=== PATIENT | female | born 1975 | race Caucasian/White ===

== ENCOUNTER 2018-01-10 12:56 | Inpatient (IN) ==
[2018-01-10] MEDS ORDERED: Tdap (Boostrix) Vaccine 0.5 ML SYRINGE IM ONE (13:37)
--- NOTE | 2018-01-10 13:52 | Emergency Department Note ---
Disposition Clinical Impression: Cellulitis, Cellulitis of arm, right, Substance abuse Disposition: Admitted As Inpatient Condition: Fair Referrals: Sammy Herring MD [Primary Care Provider] - Forms: ED Satisfaction Letter Time of Disposition: 17:15 Skin/Abscess/FB HPI Chief complaint: ED Skin/Abscess/Foreign Body Stated complaint: left and R arm cellulitis Time Seen by Provider: 01/10/18 13:15 Source: patient Nursing Notes Reviewed: Yes Vital Signs Reviewed: Yes HPI Narrative: 42-year-old female with a bipolar disorder and schizophrenia presenting for left and right arm mass, she "shot up my arms with meth "3 weeks ago. Pain has been gradually, but steadily worsening. Pt states she is not a meth user and did this because it "was a bad day, was a bad day, was a bad day," and "out of curiosity". Consistency: Constant. Pain scale: severe. Exacerbating factors: movement, flexing biceps, and palpation. Relieving factors: "passing out". Associated symptoms: erythema. Chills. Denies fever, rash. No chest pain. Denies abdominal pain. Endorses shortness of breath "kind of" . Able to walk long distances without difficulty. Tetanus status: unsure. Pt is R-handed. Home Medications Medication Instructions Recorded Confirmed Dextroamphetamine/Amphetamine 10 mg PO QID 05/15/16 11/08/17 [Adderall 10 mg Tablet] Gabapentin [Neurontin] 800 mg PO TID 01/10/18 01/10/18 SUMAtriptan Succinate [Sumavel 4 mg SQ DAILY PRN 01/10/18 01/10/18 Dosepro] Previous Rx's Medication Instructions Recorded cephALEXin [Keflex] 500 mg PO BID #14 capsule 01/08/18 Allergies Allergy/AdvReac Type Severity Reaction Status Date / Time Opioids-Meperidine and AdvReac Itching Verified 11/08/17 03:15 Related Review of Systems: As Per HPI Constitutional: Reports: chills. Denies: fever Cardiovascular: Reports: as per HPI Respiratory: Reports: as per HPI Gastrointestinal: Reports: as per HPI Genitourinary: Reports: as per HPI. Denies: dysuria Integumentary: Reports: as per HPI. Denies: rash Psychiatric: Reports: as per HPI Endocrine: Reports: other (maintains appetite: Last meal today: croissant at 7 AM, tea at 9 AM. ) Past Medical History - Past Medical History Source: patient, old records reviewed Medical history: Reports: migraine, other Surgical history: Reports: , orthopedic, other (Left index finger), other (Hemorrhoidectomy, epidural injections) Psychiatric history: Reports: anxiety, ADHD, bipolar, depression, panic disorder , schizophrenia, other PLUG WIRER history: Reports: bilateral tubal ligation - Social History Smoking Status: Current every day smoker Smokeless Tobacco Status: No Alcohol use: Reports: occasionally Drug use: Reports: marijuana, IV Drug Use Physical Exam - General Limitations: other (short answers, due to pain. Restless.) General appearance: alert, in distress - Head Head exam: other (tatoos in superior borders of eyebrows b/l) - Eye Eye exam: Present: PERRL, EOMI - Respiratory Respiratory exam: Present: normal lung sounds bilaterally. Absent: accessory muscle use - Cardiovascular Cardiovascular exam: Present: other (diminished heart sounds ) - Abdominal Exam Abdominal exam: Present: soft, Non-Tender. Absent: distention, guarding, rebound - Extremities Exam Extremities exam: Present: other (L UE: Erythematous, hard swollen mass pocket in L deltoid. Non-purulent. No crepitation noted. No active bleeding. R UE: Erythematous, hard swollen mass pocket. Non-purulent. Radial pulse intact b/l. Adequate architect in training strength b/l.) - Psychiatric Psychiatric exam: Present: anxious Course - Reevaluation(s) Reevaluation #1: 14:30 --At radiology. Reevaluation #2: 14:50. No progressive erythema on b/l arms. Patient resting still, however states she is in pain. CBC, BMP labs reviewed. BMP returned with normal Cr function - will give 15 mg Toradol IVP x1. No change in mentation. Reevaluation #3: 15:35 CT R and L UE results returned, reviewed with attending. CT demonstrating gas in R arm . Small foci of gas within the anterior deltoid muscle at the level the humeral neck. concerning for necrotizing fascitis. Surgical consult placed. Pt states pain remains at deltoid b/l, reduced from a 11 to 10/10. Did appear to be sleeping comfortably before re-assessment. Additional Reevaluation(s): 17:17 Patient sleeping comfortably. Amenable to admission. No further questions. - Consultations Consultation #1: 15:45 - 15:50 - Consultation with Dr. Montana. Reviewed clinical presentation, exam and CT findings. Dr. Montana is presently in surgery, spoke to the scrub RN and Dr. Montana, he will evaluate patient when he is finished. Discussed with patient, we are awaiting recommendations from surgery. Pt amenable to plan. Consultation #2: 16:15 - Dr Montana at bedside, evaluated pt and personally reviewed CT. Deems patient clinical presentation would benefit from orthopedic consultation. Consultation #3: 16:30 - Consultation with orthopedic surgeon Dr. Ang over the phone. Reviewed presentation, exam findings, CT findings. He recommends admission to medicine, with a consultation to orthopedics. Requests ESR and CRP. Consultation to medicine made. Additional Consultation(s): 17:15 Discussed clinical presentation, exam, imaging, and labs with patient for cellulitis. Accepted by Hospitalist Candy. Vital Signs Temperature 97.3 F L 01/10/18 13:00 Pulse Rate 78 01/10/18 13:00 Respiratory Rate 18 01/10/18 13:00 Blood Pressure 145/88 01/10/18 13:00 O2 Sat by Pulse Oximetry 100 01/10/18 13:00 Temperature 97.3 F L 01/10/18 13:00 Pulse Rate 79 01/10/18 16:15 Respiratory Rate 18 01/10/18 16:15 Blood Pressure 132/97 01/10/18 16:15 O2 Sat by Pulse Oximetry 100 01/10/18 16:15 Oxygen Delivery Oxygen Delivery Room Air Skin/Abscess/Foreign Body - [facility] Narrative Medical decision making narrative: 42 y F with bipolar disorder and schizophrenia presenting with non-purulent skin tissue swelling, onset 3 weeks ago, gradually worsening in pain. Anterior bilateral abcesses, on R and L deltoid. No skin necrosis. No crepitance noted. CBC, BMP, Blood cultures. CT of R and L UE w/ contrast. Empiric antibiotic coverage with Vancomycin and Unasyn. - Differential Diagnosis Likely: abscess of skin or subcutaneous tissue, cellulitis - Medical Records Medical records reviewed: Yes I reviewed the patient's medical records. - Lab Data Lab results reviewed: Yes I reviewed the patient's lab results. Result diagrams: 01/10/18 13:48 01/10/18 13:48 Lab Results 01/10/18 01/10/18 01/10/18 Range/Units 13:48 13:48 16:38 WBC 11.5 H (4.3-11.1) K/mcL RBC 4.03 (3.82-4.97) M/mcL Hgb 11.7 (11.5-15.4) g/dL Hct 36.2 (35.3-44.9) % MCV 89.8 (83.0-100.0) fL MCH 29.0 (28.0-33.3) pg MCHC 32.3 (31.6-35.5) g/dL RDW 12.8 (11.5-14.5) % Plt Count 211 (140-400) K/mcL MPV 10.7 (9.4-12.4) fL Immature Gran % 0.7 (0-4) % Seg Neutrophils % 81.4 % Lymphocytes % 7.6 % Monocytes % 9.3 % Eosinophils % 0.7 % Basophils % 0.3 % Neutrophils # 9.4 H (1.6-8.9) K/mcL Lymphocytes # 0.9 (0.6-4.6) K/mcL Monocytes # 1.1 (0.0-1.3) K/mcL Eosinophils # 0.1 (0.0-0.6) K/mcL Basophils # 0.0 (0.0-0.2) K/mcL Nucleated RBCs/100 WBC 0.3 H (0) /100 WBC ESR (0-15) mm/hr Sodium 134 L (136-145) mEq/L Potassium 4.5 (3.5-5.1) mEq/L Chloride 105 (98-107) mEq/L Carbon Dioxide 23 (23-29) mEq/L BUN 9 (6-20) mg/dL Creatinine 0.82 (0.60-1.20) mg/dL Est GFR ( Amer) > 60 (> 60) Est GFR (Non-Af Amer) > 60 (> 60) BUN/Creatinine Ratio 11 (6-26) Glucose 92 (70-105) mg/dL Calculated Osmolality 276 L (280-300) Lactic Acid 1.1 (0.5-2.2) mmol/L Calcium 8.7 (8.6-10.3) mg/dL C-Reactive Protein 31 H (Less than 10) mg/L 01/10/18 Range/Units 16:38 WBC (4.3-11.1) K/mcL RBC (3.82-4.97) M/mcL Hgb (11.5-15.4) g/dL Hct (35.3-44.9) % MCV (83.0-100.0) fL MCH (28.0-33.3) pg MCHC (31.6-35.5) g/dL RDW (11.5-14.5) % Plt Count (140-400) K/mcL MPV (9.4-12.4) fL Immature Gran % (0-4) % Seg Neutrophils % % Lymphocytes % % Monocytes % % Eosinophils % % Basophils % % Neutrophils # (1.6-8.9) K/mcL Lymphocytes # (0.6-4.6) K/mcL Monocytes # (0.0-1.3) K/mcL Eosinophils # (0.0-0.6) K/mcL Basophils # (0.0-0.2) K/mcL Nucleated RBCs/100 WBC (0) /100 WBC ESR 44 H (0-15) mm/hr Sodium (136-145) mEq/L Potassium (3.5-5.1) mEq/L Chloride (98-107) mEq/L Carbon Dioxide (23-29) mEq/L BUN (6-20) mg/dL Creatinine (0.60-1.20) mg/dL Est GFR ( Amer) (> 60) Est GFR (Non-Af Amer) (> 60) BUN/Creatinine Ratio (6-26) Glucose (70-105) mg/dL Calculated Osmolality (280-300) Lactic Acid (0.5-2.2) mmol/L Calcium (8.6-10.3) mg/dL C-Reactive Protein (Less than 10) mg/L - Radiology Data Radiology results reviewed: Yes I reviewed the patient's radiology results. Impressions Upper Extremity CT 01/10/18 13:34 IMPRESSION: 1. Anterior subcutaneous abscess at the elbow with underlying muscular involvement measuring 3.2 x 2.8 x 3.5 cm. Subcutaneous veins are associated with the periphery of the lesion. 2. Subcutaneous stranding about the medial aspect of the upper are most consistent with cellulitis. D/ / Darrick Celeste MD / Darrick Celeste MD Interpreting Provider: Darrick Celeste MD Upper Extremity CT 01/10/18 13:34 IMPRESSION: 1. Focal area of subcutaneous fat stranding and skin thickening in the anterior aspect of the mid right arm compatible with cellulitis versus phlegmon. No well-defined drainable fluid collection. 2. Small foci of gas within the anterior deltoid muscle at the level the humeral neck. This may be related to injection and no associated fluid collection or other abnormality identified. 3. No acute osseous abnormality. D/ / George Howell MD / George Howell MD Interpreting Provider: George Howell MD
--- NOTE | 2018-01-10 14:00 | Emergency Department Note ---
Disposition Clinical Impression: Abscess of skin or subcutaneous tissue Qualifiers: Site of cutaneous abscess: extremity Site of cutaneous abscess of extremity: upper extremity Laterality: left Qualified Code(s): L02.414 - Cutaneous abscess of left upper limb Disposition: Still a Patient Referrals: Sammy Herring MD [Primary Care Provider] - Forms: ED Satisfaction Letter General Adult HPI - General Chief complaint: ED Skin/Abscess/Foreign Body Stated complaint: left and R arm cellulitis Time Seen by Provider: 01/10/18 13:15 Source: patient - History of Present Illness Pain Scale: 10 - Related Data Home Medications Medication Instructions Recorded Confirmed Dextroamphetamine/Amphetamine 10 mg PO QID 05/15/16 11/08/17 [Adderall 10 mg Tablet] Gabapentin [Gralise] 800 mg PO TID 05/15/16 11/08/17 Naproxen [Naprosyn] 250 mg PO PRN PRN 05/15/16 11/08/17 SUMAtriptan Succinate [Zembrace 3 mg SQ PRN PRN 05/15/16 11/08/17 Symtouch] Hydrocortisone 1% CREAM [Cortaid] 1 applic TP HS PRN 11/08/17 11/08/17 Ibuprofen [Motrin] 800 mg PO Q8HR PRN 11/08/17 11/08/17 Previous Rx's Medication Instructions Recorded Sulfamethoxazole/Trimeth DS 1 tab PO BID #14 tablet 01/08/18 [Bactrim DS] cephALEXin [Keflex] 500 mg PO BID #14 capsule 01/08/18 Allergies Allergy/AdvReac Type Severity Reaction Status Date / Time Opioids-Meperidine and AdvReac Itching Verified 11/08/17 03:15 Related Constitutional: Reports: chills. Denies: fever Cardiovascular: Reports: as per HPI Respiratory: Reports: as per HPI Gastrointestinal: Reports: as per HPI Genitourinary: Reports: as per HPI. Denies: dysuria Integumentary: Reports: as per HPI. Denies: rash Psychiatric: Reports: as per HPI Past Medical History - Past Medical History Medical history: Reports: migraine, other Surgical history: Reports: , orthopedic, other (Left index finger), other (Hemorrhoidectomy, epidural injections) Psychiatric history: Reports: anxiety, ADHD, bipolar, depression, panic disorder , schizophrenia, other ANALYTICAL TECHNICIAN history: Reports: bilateral tubal ligation - Social History Smoking Status: Current every day smoker Smokeless Tobacco Status: No Alcohol use: Reports: occasionally Drug use: Reports: marijuana, IV Drug Use Physical Exam - General General appearance: alert Course - Reevaluation(s) Reevaluation #1: Attestation note I examined this patient and my medical decision-making was reviewed with the emergency medicine resident. I agree with the documented findings, disposition and treatment plan as described except to the extent set forth below. Patient seen with PGY1 resident Dr. Arguello, Please see a copy of his note for details of the H&P, ED evaluation, management and disposition. I have independently evaluated the patient and confirmed appropriate portions of the history and physical exam. 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 Patient used about 3 weeks ago injected crystal meth into her right forearm and left forearm she is right-hand- dominant. She has a large anterior bicipital abscess and on the left lateral deltoid. She is neurovascularly intact no skin necrosis no crepitance noted patient is having a contrast CT scan of both arms. And screening labs. Patient 's tetanus will be boosted. Admission anticipated. Disposition pending Time: 13:59 Vital Signs Temperature 97.3 F L 01/10/18 13:00 Pulse Rate 78 01/10/18 13:00 Respiratory Rate 18 01/10/18 13:00 Blood Pressure 145/88 01/10/18 13:00 O2 Sat by Pulse Oximetry 100 01/10/18 13:00 Temperature 97.3 F L 01/10/18 13:00 Pulse Rate 78 01/10/18 13:00 Respiratory Rate 18 01/10/18 13:00 Blood Pressure 145/88 01/10/18 13:00 O2 Sat by Pulse Oximetry 100 01/10/18 13:00 Oxygen Delivery Oxygen Delivery Room Air
[2018-01-10 14:09] LABS: Basophils % 0.3 %; Eosinophils # 0.1 K/mcL (0.0-0.6); Eosinophils % 0.7 %; Hematocrit 36.2 % (35.3-44.9); Hemoglobin 11.7 g/dL (11.5-15.4); Immature Granulocytes % 0.7 % (0-4); Lymphocytes # 0.9 K/mcL (0.6-4.6); Lymphocytes % 7.6 %; Mean Corpuscular HGB Conc 32.3 g/dL (31.6-35.5); Mean Corpuscular Volume 89.8 fL (83.0-100.0); Mean Platelet Volume 10.7 fL (9.4-12.4); Monocytes # 1.1 K/mcL (0.0-1.3); Monocytes % 9.3 %; Neutrophils # 9.4 K/mcL (1.6-8.9); Nucleated Red Blood Cells 0.3 /100 WBC (0); Platelet Count 211 K/mcL (140-400); Red Blood Count 4.03 M/mcL (3.82-4.97); Red Cell Distribution Width 12.8 % (11.5-14.5); Segmented Neutrophils % 81.4 %
[2018-01-10] MEDS ORDERED: Ampicillin/Sulbactam 3,000 MG in 0.9 % Sodium Chloride Mini Bag 100 ML IVPB ONE (14:15)
[2018-01-10 14:34] LABS: BUN/Creatinine Ratio 11 (6-26); Blood Urea Nitrogen 9 mg/dL (6-20); Calcium 8.7 mg/dL (8.6-10.3); Carbon Dioxide 23 mEq/L (23-29); Chloride 105 mEq/L (98-107); Glucose 92 mg/dL (70-105); Osmolality,Calculated 276 (280-300); Potassium 4.5 mEq/L (3.5-5.1); Sodium 134 mEq/L (136-145); eGFR For African Americans > 60 (> 60); eGFR For Non-African Americans > 60 (> 60)
[2018-01-10] MEDS ORDERED: Ketorolac 30 MG/ML VIAL IVP ONE ×3 (14:51→18:34)
[2018-01-10 17:02] LABS: C-Reactive Protein 31 mg/L (Less than 10)
[2018-01-10] MEDS ORDERED: Ketorolac 15 MG/ML VIAL IVP ONE (18:34)
[2018-01-10] MEDS ORDERED: Naloxone 0.4 MG/ML INJ IVP PRN (20:30)
--- NOTE | 2018-01-10 20:35 | Internal Med History&Physical ---
<Leroy Lea - Last Filed: 01/10/18 20:48> Date of Encounter: 01/10/18 Time of Encounter: 20:35 Assessment and Plan (1) Abscess Current visit: Yes Status: Acute Patient presents with a history of injection drug use with bilateral upper extremity cellulitis. CT scan reports reviewed below. LUE CT: 1. Anterior subcutaneous abscess at the elbow with underlying muscular involvement measuring 3.2 x 2.8 x 3.5 cm. Subcutaneous veins are associated with the periphery of the lesion. 2. Subcutaneous stranding about the medial aspect of the upper arm are most consistent with cellulitis RUE CT: 1. Focal area of subcutaneous fat stranding and skin thickening in the anterior aspect of the mid right arm compatible with cellulitis versus phlegmon. No well-defined drainable fluid collection. 2. Small foci of gas within the anterior deltoid muscle at the level the humeral neck. This may be related to injection and no associated fluid collection or other abnormality identified. 3. No acute osseous abnormality. Blood cultures obtained. Tetanus updated in the emergency department. Patient started on broad-spectrum antibiotics with vancomycin and Unasyn. Gen. surgery was consulted who evaluated the patient and recommended orthopedic consultation Orthopedic surgery contacted by the emergency department and will see the patient in the morning. Continue IV antibiotic regimen. Tylenol and Motrin for pain control. NPO at midnight. (2) Cellulitis Current visit: Yes Status: Acute The patient presents with bilateral upper extremity cellulitis in the setting of injection drug use. Afebrile upon presentation. Leukocytosis of 11.[address] scan of the upper extremities revealing an abscess in the left antecubital region as well as stranding with cellulitic changes in the right arm with an additional foci of gas. Patient is currently on vancomycin and Unasyn for antibiotic coverage. Qualifiers: Site of cellulitis: extremity Site of cellulitis of extremity: upper extremity Laterality: unspecified laterality Qualified Code(s): L03.119 - Cellulitis of unspecified part of limb (3) Substance abuse Current visit: Yes Status: Acute Reports methamphetamine abuse most recently 3 weeks ago by injection. History of marijuana use. business services manager consulted for substance abuse. Internal Medicine - H&P: HPI Chief complaint: Cellulitis Admitted From: Emergency Dept Plans for Post Hospital Care: Home History of present illness: Ms. Cole is a 42 year old female with a past medical history of migraines, ADHD who presents to the emergency department on 01/10/18 with a chief complaint of bilateral upper extremity redness and pain. Patient reports that she injected methamphetamines into her arms roughly 3 weeks ago. She reports that she was having a bad day and was curious. Denies any intent to harm. No prior history of illicit drug use in the past with the exception of smoking marijuana. Reports over the last 3 weeks that the pain has worsened and there was some redness. She is a poor historian and unclear on the exact time frame. She reports subjective fevers at home. No nausea vomiting or diarrhea. Unsure when her last tetanus injection was. She was evaluated in the emergency department and found to have concern for a small foci of gas in the deltoid region. General surgery was first consulted then orthopedic surgery was consulted who recommended admission to the hospitalist service with orthopedic consultation. The patient was given a dose of IV vancomycin and Unasyn as well as Tdap and admitted for further evaluation. Past Med Surg Social Fam HX - Past Medical History Attestation: Yes The following information was validated with the patient. Source: patient Medical history: migraine, other Psychiatric history: anxiety, ADHD, bipolar, depression, panic disorder, schizophrenia, other - Past Surgical History Surgical History: , orthopedic, other (Left index finger), other ( Hemorrhoidectomy, epidural injections) - Social History Smoking Status: Current every day smoker Smokeless Tobacco Status: No Alcohol use: occasionally Drug use: marijuana, IV Drug Use Internal Medicine - H&P: Meds Dextroamphetamine/Amphetamine [Adderall 10 mg Tablet] 10 mg PO QID 05/15/16 [ History] cephALEXin [Keflex] 500 mg PO BID #14 capsule 01/08/18 [Rx] Gabapentin [Neurontin] 800 mg PO TID 01/10/18 [History] SUMAtriptan Succinate [Sumavel Dosepro] 4 mg SQ DAILY PRN 01/10/18 [History] 3 Allergy/AdvReac Type Severity Reaction Status Date / Time Opioids-Meperidine and AdvReac Itching Verified 11/08/17 03:15 Related All Systems PM: A 10-system review of systems was performed and is negative for pertinent findings except as documented above in the HPI. - Constitutional Constitutional: as per HPI, chills, fever(s) (subjective), no weight loss - EENT Eyes: as per HPI Ears: as per HPI Nose, mouth and throat: as per HPI - Breasts Breasts: as per HPI - Cardiovascular Cardiovascular ROS IM: as per HPI - Respiratory Respiratory: as per HPI - Gastrointestinal Gastrointestinal: as per HPI, no abdominal pain, no diarrhea, no nausea, no vomiting - Genitourinary Genitourinary: as per HPI Menstruation: as per HPI - Musculoskeletal Musculoskeletal ROS IM: as per HPI, other (Pain over the left antecubital area. Pain in the right anterior biceps) - Integumentary Integumentary IM: as per HPI, erythema (Bilateral upper extremities) - Neurological Neurological ROS: as per HPI - Psychiatric Psychiatric: as per HPI - Endocrine Endocrine IM: as per HPI - Hematologic/Lymphatic Hematologic/Lymphatic: as per HPI - Allergic/Immunologic Allergic/Immunologic: as per HPI - Constitutional Vitals: Temp Pulse Resp BP Pulse Ox 99.3 F 88 16 137/85 95 01/10/18 19:01 01/10/18 20:30 01/10/18 20:30 01/10/18 20:30 01/10/18 20:30 General appearance: Present: A&O X 3, answers questions appropriately - Head Head exam: Present: atraumatic, normal inspection, normocephalic - Eye Eye exam: Present: normal appearance. Absent: conjunctival injection - ENT ENT exam: Present: mucous membranes moist, normal exam - Neck Neck exam general surgery: Present: full ROM - Respiratory Respiratory exam: Present: CTAB. Absent: accessory muscle use, prolonged expiratory phase, respiratory distress, rhonchi - Cardiovascular Cardiovascular exam: Present: RRR, +S1, +S2. Absent: diastolic murmur, irregular rhythm - GI/Abdominal GI/Abdominal exam: Present: soft. Absent: distended, guarding, tenderness - Extremities Exam Extremities exam: Present: full ROM Additional comments: There is tenderness to palpation along the right anterior lateral aspect of the bicep with a small area of overlying erythema. There is an additional roughly 2 x 3 cm area of induration and fluctuance in the left antecubital region with overlying erythema. - Psychiatric Psychiatric exam: Present: anxious - Skin Skin exam: Present: erythema Internal Med - H&P Results - Labs CBC & Chem 7: 01/10/18 13:48 01/10/18 13:48 - Impressions CT RUE: IMPRESSION: 1. Focal area of subcutaneous fat stranding and skin thickening in the anterior aspect of the mid right arm compatible with cellulitis versus phlegmon. No well-defined drainable fluid collection. 2. Small foci of gas within the anterior deltoid muscle at the level the humeral neck. This may be related to injection and no associated fluid collection or other abnormality identified. 3. No acute osseous abnormality. CT LUE: 1. Anterior subcutaneous abscess at the elbow with underlying muscular involvement measuring 3.2 x 2.8 x 3.5 cm. Subcutaneous veins are associated with the periphery of the lesion. 2. Subcutaneous stranding about the medial aspect of the upper arm are most consistent with cellulitis. <[email or web address] - Last Filed: 01/10/18 22:17> Date of Encounter: 01/10/18 Internal Medicine - H&P: HPI History of present illness: Ms. Cole is a 42 year old female Past Med Surg Social Fam HX - Family History Father Adopted: No Family Member Ethnicity: Non- Living Status: Cause of : drug overdose Hx Family Endocrine Disorder: Yes (diabetic) All Systems PM: A 10-system review of systems was performed and is negative for pertinent findings except as documented above in the HPI. - Constitutional Vitals: Temp Pulse Resp BP Pulse Ox 99.6 F 88 14 134/84 98 01/10/18 21:12 01/10/18 21:12 01/10/18 21:12 01/10/18 21:12 01/10/18 21:12 Internal Med - H&P Results - Labs CBC & Chem 7: 01/10/18 13:48 01/10/18 13:48 - Attending Attestation I examined this patient and my medical decision-making was reviewed with the Resident Physician. I agree with the documented findings, disposition and treatment plan as described except to the extent set forth below.
[2018-01-10] MEDS: Ibuprofen 400 MG TABLET PO PRN (21:36)
[2018-01-10] MEDS: 0.9 % Sodium Chloride 1,000 ML IVC SCH (21:37)
[2018-01-11] MEDS: Ampicillin/Sulbactam 3,000 MG in 0.9 % Sodium Chloride Mini Bag 100 ML IVPB SCH ×2 (00:32→06:14)
[2018-01-11 05:33] LABS: Basophils % 0.2 %; Eosinophils # 0.1 K/mcL (0.0-0.6); Eosinophils % 1.5 %; Hematocrit 33.4 % (35.3-44.9); Hemoglobin 10.7 g/dL (11.5-15.4); Immature Granulocytes % 0.5 % (0-4); Lymphocytes # 1.3 K/mcL (0.6-4.6); Lymphocytes % 15.5 %; Mean Corpuscular Hemoglobin 28.5 pg (28.0-33.3); Mean Corpuscular Volume 88.8 fL (83.0-100.0); Mean Platelet Volume 10.7 fL (9.4-12.4); Monocytes # 0.8 K/mcL (0.0-1.3); Monocytes % 9.7 %; Neutrophils # 6.1 K/mcL (1.6-8.9); Platelet Count 199 K/mcL (140-400); Red Blood Count 3.76 M/mcL (3.82-4.97); Red Cell Distribution Width 12.9 % (11.5-14.5); Segmented Neutrophils % 72.6 %
[2018-01-11 05:39] LABS: INR 1.4; Prothrombin Time 14.9 Seconds (9.4-12.1)
[2018-01-11 05:52] LABS: BUN/Creatinine Ratio 16 (6-26); Blood Urea Nitrogen 12 mg/dL (6-20); Calcium 8.3 mg/dL (8.6-10.3); Carbon Dioxide 22 mEq/L (23-29); Chloride 108 mEq/L (98-107); Glucose 98 mg/dL (70-105); Osmolality,Calculated 278 (280-300); Potassium 4.2 mEq/L (3.5-5.1); Sodium 134 mEq/L (136-145); eGFR For African Americans > 60 (> 60); eGFR For Non-African Americans > 60 (> 60)
[2018-01-11] MEDS: Ibuprofen 400 MG TABLET PO PRN (06:29)
--- NOTE | 2018-01-11 08:37 | Internal Med Progress Note ---
Date of Encounter: 01/11/18 Time of Encounter: 08:15 - Assessment and plan (1) Abscess Current Visit: Yes Status: Acute Assessment and plan: Left antecubital fossa abscess draining. Right deltoid phlegmon with no drainage. Plan #1. Stop Unasyn start Zosyn and continue vancomycin next #2. Wound culture sent. Follow blood cultures X #3. Surgical consultation (2) ADHD Current Visit: Yes Status: Acute Assessment and plan: Hold stimulant at this time (3) Bipolar 1 disorder Current Visit: Yes Status: Acute (4) Depression Current Visit: Yes Status: Acute Assessment and plan: Hold off any further treatment at this time. This can be followed up outpatient should she be willing. (5) Substance abuse Current Visit: Yes Status: Acute - Time Spent With Patient Total time spent is greater than 50% in coordination of care (as documented) at patient's floor/unit and/or counseling patient: 25 - 35 minutes - Subjective Interval history: Patient reports pain in the in the left antecubital fossa and the right arm at the site of the abscess. No overnight events. - Constitutional Vitals: Temp Pulse Resp BP Pulse Ox 98.3 F 76 16 108/70 97 01/11/18 06:55 01/11/18 06:55 01/11/18 06:55 01/11/18 06:55 01/11/18 06:55 General appearance: Present: A&O X 3, answers questions appropriately Exam: Physical exam Gen: Comfortable, laying in bed, in no visible distress HEENT: Normocephalic, atraumatic. No conjunctival icterus. Moist oral mucosa. Neck: Supple Lungs: Clear to auscultation, no foreign sounds Heart: Normal S1-S2, no murmurs rubs or gallops Abdomen: Normoactive bowel sounds, no guarding rigidity or tenderness Extremities: No edema clubbing or cyanosis Neuro: Alert oriented 3, no focal deficits Skin: Left ante-cubital fossa abscess with drainage. The site was cleaned with alcohol and cultures obtained. Right deltoid swelling suggestive of abscess. Patient endorses injection here. Multiple skin tattoos. Internal Medicine: Result - Labs CBC & Chem 7: 01/11/18 04:59 01/11/18 04:59 Labs: Short CBC 04/21/18 04/21/18 04/21/18 Range/Units 04:59 04:59 04:59 WBC 8.5 (4.3-11.1) K/mcL RBC 3.76 L (3.82-4.97) M/mcL Hgb 10.7 L (11.5-15.4) g/dL Hct 33.4 L (35.3-44.9) % MCV 88.8 (83.0-100.0) fL MCH 28.5 (28.0-33.3) pg MCHC 32.0 (31.6-35.5) g/dL RDW 12.9 (11.5-14.5) % Plt Count 199 (140-400) K/mcL MPV 10.7 (9.4-12.4) fL Immature Gran % 0.5 (0-4) % Seg Neutrophils % 72.6 % Lymphocytes % 15.5 % Monocytes % 9.7 % Eosinophils % 1.5 % Basophils % 0.2 % Neutrophils # 6.1 (1.6-8.9) K/mcL Lymphocytes # 1.3 (0.6-4.6) K/mcL Monocytes # 0.8 (0.0-1.3) K/mcL Eosinophils # 0.1 (0.0-0.6) K/mcL Basophils # 0.0 (0.0-0.2) K/mcL PT 14.9 H (9.4-12.1) Seconds INR 1.4 Sodium 134 L (136-145) mEq/L Potassium 4.2 (3.5-5.1) mEq/L Chloride 108 H (98-107) mEq/L Carbon Dioxide 22 L (23-29) mEq/L BUN 12 (6-20) mg/dL Creatinine 0.76 (0.60-1.20) mg/dL Est GFR ( Amer) > 60 (> 60) Est GFR (Non-Af Amer) > 60 (> 60) BUN/Creatinine Ratio 16 (6-26) Glucose 98 (70-105) mg/dL POC Glucose (70-99) mg/dL Calculated Osmolality 278 L (280-300) Calcium 8.3 L (8.6-10.3) mg/dL 01/11/18 Range/Units 05:48 WBC (4.3-11.1) K/mcL RBC (3.82-4.97) M/mcL Hgb (11.5-15.4) g/dL Hct (35.3-44.9) % MCV (83.0-100.0) fL MCH (28.0-33.3) pg MCHC (31.6-35.5) g/dL RDW (11.5-14.5) % Plt Count (140-400) K/mcL MPV (9.4-12.4) fL Immature Gran % (0-4) % Seg Neutrophils % % Lymphocytes % % Monocytes % % Eosinophils % % Basophils % % Neutrophils # (1.6-8.9) K/mcL Lymphocytes # (0.6-4.6) K/mcL Monocytes # (0.0-1.3) K/mcL Eosinophils # (0.0-0.6) K/mcL Basophils # (0.0-0.2) K/mcL PT (9.4-12.1) Seconds INR Sodium (136-145) mEq/L Potassium (3.5-5.1) mEq/L Chloride (98-107) mEq/L Carbon Dioxide (23-29) mEq/L BUN (6-20) mg/dL Creatinine (0.60-1.20) mg/dL Est GFR ( Amer) (> 60) Est GFR (Non-Af Amer) (> 60) BUN/Creatinine Ratio (6-26) Glucose (70-105) mg/dL POC Glucose 83 (70-99) mg/dL Calculated Osmolality (280-300) Calcium (8.6-10.3) mg/dL BMP 01/11/18 04:59 Sodium 134 L Potassium 4.2 Chloride 108 H Carbon Dioxide 22 L BUN 12 Creatinine 0.76 Glucose 98 Calcium 8.3 L - ABG Interpretation ABG results: PT/INR, D-dimer PT 14.9 Seconds (9.4-12.1) H 01/11/18 04:59 Consult Discharge Plan - Plan Referrals: Sammy Herring MD [Primary Care Provider] -
[2018-01-11] MEDS: Nicotine 21 MG PATCH.TD24 TD SCH (09:17)
[2018-01-11] MEDS: 0.9 % Sodium Chloride 1,000 ML IVC SCH (10:56)
[2018-01-11] MEDS: Gabapentin 400 MG CAPSULE PO SCH ×3 (10:57→20:08)
--- NOTE | 2018-01-11 19:28 | Orthopedic Consult Note ---
Date of Encounter: 01/11/18 Time of Encounter: 19:17 History of Present Illness Chief complaint: Left elbow abscess with drainage and painful lump right arm HPI: Ms. Cole is a 42 year old [id number] female who admits to self injecting methamphetamine into both arms. Patient states that she last injected 3 weeks ago. It is unclear the exact onset of the symptoms but she states it has been present for some time. She was seen in the emergency room had CT scans completed. She was ultimately admitted to [facility] and started on intravenous antibiotics. Since her admission and abscess at the left antecubital fossa has spontaneously opened and drained. The patient is having more complaints referable to the right arm. Denies neurovascular complaints. Patient states that she is not a frequent user of intravenous drugs. Reviewed the patient's history and physical examination including the past medical history. This is included in the documented on the medical record. Pertinent orthopedic examination reveals a draining opening in the anterior left antecubital fossa. There is minimal purulence. Edges are healthy. No significant erythema or edema. The right arm reveals a firm area in the anterior mid bicep. There is no evidence of fullness crepitance or fluid collection within the deltoid more proximally. White blood cell count was initially 11.5 and this has dropped to 8.5. Platelet count has been normal. Sedimentation rate was 44. CRP was [address] scan of the left upper extremity was reviewed. This revealed what appeared to be an abscess in the antecubital fossa in the subcutaneous tissue. This has since spontaneously opened and is draining. Impression: 1. Draining abscess left antecubital fossa 2. Probable septic thrombophlebitis right cephalic vein 3. No evidence of deltoid abscess Recommendation: I would continue with intravenous antibiotics and routine monitoring. I do not see any indication for surgical intervention at this time. The left antecubital abscess is draining spontaneously, this is the definitive treatment including the antibiotics. In regards to the right upper extremity I would observe the upper arm findings and further treatment would be rendered pending the response to current antibiotic regimen Thank you for allowing me to see care for Ms. Cole. Sincerely, David Ang, DO Past Med Surg Social Fam HX - Past Medical History Medical history: migraine, other Psychiatric history: anxiety, ADHD, bipolar, depression, panic disorder, schizophrenia, other - Past Surgical History Surgical History: , orthopedic, other, other - Social History Smoking Status: Current every day smoker Smokeless Tobacco Status: No Alcohol use: occasionally Drug use: marijuana, IV Drug Use - Family History Father Adopted: No Family Member Ethnicity: Non- Living Status: Cause of : drug overdose Hx Family Endocrine Disorder: Yes (diabetic) Medications and Allergies Dextroamphetamine/Amphetamine [Adderall 10 mg Tablet] 10 mg PO QID 05/15/16 [ History] cephALEXin [Keflex] 500 mg PO BID #14 capsule 01/08/18 [Rx] Gabapentin [Neurontin] 800 mg PO TID 01/10/18 [History] SUMAtriptan Succinate [Sumavel Dosepro] 4 mg SQ DAILY PRN 01/10/18 [History] 3 Allergy/AdvReac Type Severity Reaction Status Date / Time Opioids-Meperidine and AdvReac Itching Verified 11/08/17 03:15 Related All Systems Reviewed: The remainder of the systems were reviewed and are negative Physical Exam - Constitutional Vitals: Temp Pulse Resp BP Pulse Ox 97.5 F L 85 16 113/78 98 01/11/18 15:45 01/11/18 15:45 01/11/18 15:45 01/11/18 15:45 01/11/18 15:45 Results - Labs Result Diagrams: 01/11/18 04:59 01/11/18 04:59 Labs: Abnormal lab results RBC 3.76 M/mcL (3.82-4.97) L 01/11/18 04:59 Hgb 10.7 g/dL (11.5-15.4) L 01/11/18 04:59 Hct 33.4 % (35.3-44.9) L 01/11/18 04:59 Nucleated RBCs/100 WBC 0.3 /100 WBC (0) H 01/10/18 13:48 ESR 44 mm/hr (0-15) H 01/10/18 16:38 PT 14.9 Seconds (9.4-12.1) H 01/11/18 04:59 Sodium 134 mEq/L (136-145) L 01/11/18 04:59 Chloride 108 mEq/L (98-107) H 01/11/18 04:59 Carbon Dioxide 22 mEq/L (23-29) L 01/11/18 04:59 Calculated Osmolality 278 (280-300) L 01/11/18 04:59 Calcium 8.3 mg/dL (8.6-10.3) L 01/11/18 04:59 C-Reactive Protein 31 mg/L (Less than 10) H 01/10/18 13:48 H & H 01/11/18 Range/Units 04:59 Hgb 10.7 L (11.5-15.4) g/dL Hct 33.4 L (35.3-44.9) % All other labs normal. - Diagnostic results Shoulder CT: image reviewed Consult Discharge Plan - Plan Referrals: Sammy Herring MD [Primary Care Provider] -
[2018-01-11] MEDS: Piperacillin/Tazobactam 3.375 GM in 0.9 % Sodium Chloride Mini Bag 100 ML IVPB SCH (20:07)
[2018-01-12] MEDS: Piperacillin/Tazobactam 3.375 GM in 0.9 % Sodium Chloride Mini Bag 100 ML IVPB SCH ×4 (00:57→23:49)
[2018-01-12] MEDS: Ibuprofen 400 MG TABLET PO PRN ×2 (00:58→16:57)
[2018-01-12 05:14] LABS: BUN/Creatinine Ratio 19 (6-26); Blood Urea Nitrogen 16 mg/dL (6-20); eGFR For African Americans > 60 (> 60); eGFR For Non-African Americans > 60 (> 60)
[2018-01-12] MEDS: Nicotine 21 MG PATCH.TD24 TD SCH (08:37)
[2018-01-12] MEDS: Gabapentin 400 MG CAPSULE PO SCH ×3 (08:38→21:09)
--- NOTE | 2018-01-12 08:54 | Internal Med Progress Note ---
Date of Encounter: 01/12/18 Time of Encounter: 08:40 - Assessment and plan (1) Abscess Current Visit: Yes Status: Acute Assessment and plan: Left antecubital fossa abscess draining. Right deltoid phlegmon with no drainage. Plan #1. Continue vancomycin and Zosyn #2. Wound culture sent, noted I at. Follow blood cultures #3. No surgical intervention per surgery. We will observe and see how the right arm looks for making a definitive decision. The right arm does appear erythematous today. (2) ADHD Current Visit: Yes Status: Acute Assessment and plan: Hold stimulant at this time (3) Bipolar 1 disorder Current Visit: Yes Status: Acute (4) Depression Current Visit: Yes Status: Acute Assessment and plan: Hold off any further treatment at this time. This can be followed up outpatient should she be willing. Qualifiers: Qualified Code(s): F32.9 - Major depressive disorder, single episode, unspecified (5) Substance abuse Current Visit: Yes Status: Acute - Time Spent With Patient Total time spent is greater than 50% in coordination of care (as documented) at patient's floor/unit and/or counseling patient: 25 - 35 minutes - Subjective Interval history: Patient still reports pain in the in the left antecubital fossa and the right arm at the site of the correction. No overnight events. She reports the right arm is turning red. - Constitutional Vitals: Temp Pulse Resp BP Pulse Ox 97.9 F 72 18 103/67 96 01/12/18 06:57 01/12/18 06:57 01/12/18 06:57 01/12/18 06:57 01/12/18 06:57 General appearance: Present: A&O X 3, answers questions appropriately Exam: Physical exam Gen: Comfortable, laying in bed, in no visible distress HEENT: Normocephalic, atraumatic. No conjunctival icterus. Moist oral mucosa. Neck: Supple Lungs: Clear to auscultation, no foreign sounds Heart: Normal S1-S2, no murmurs rubs or gallops Abdomen: Normoactive bowel sounds, no guarding rigidity or tenderness Extremities: No edema clubbing or cyanosis Neuro: Alert oriented 3, no focal deficits Skin: Left ante-cubital fossa abscess with drainage. The site was cleaned with alcohol and cultures obtained. Right deltoid swelling suggestive of abscess. Patient endorses injection here. Multiple skin tattoos. Internal Medicine: Result - Labs CBC & Chem 7: 01/11/18 04:59 01/12/18 03:56 Labs: BMP 01/12/18 03:56 BUN 16 Creatinine 0.85 - ABG Interpretation ABG results: PT/INR, D-dimer PT 14.9 Seconds (9.4-12.1) H 01/11/18 04:59 Consult Discharge Plan - Plan Referrals: Sammy Herring MD [Primary Care Provider] -
--- NOTE | 2018-01-12 19:40 | Orthopedics Progress Note ---
Date of Encounter: 01/12/18 Time of Encounter: 19:37 Subjective Principal diagnosis: Left antecubital infection Interval history: 01/12/2018. Patient is complaining of pain especially in the right upper arm. She also had a tetanus injection given in the right upper arm. Vital signs are stable. Patient is afebrile. Right anterior bicep appears less erythematous. There is induration without obvious fluctuance. Patient complains of pain at the distal biceps tendon at the elbow. No obvious fluctuance or painful area in the anterior deltoid. Left antecubital abscess is growing staph aureus, final sensitivities and identification is pending. Recommend continue with intravenous antibiotics. No indication to perform formal I&D on the right arm. Reevaluation in 24 hours, preliminary suspicion is that the patient will not need formal incision and drainage. Objective Vital signs: Vital Signs Temp Pulse Resp BP Pulse Ox 01/12/18 17:45 97.7 F 78 18 157/103 100 01/12/18 10:41 97.3 F L 78 16 114/68 99 01/12/18 06:57 97.9 F 72 18 103/67 96 01/12/18 03:39 98.4 F 83 17 100/64 98 01/12/18 00:07 98.9 F 84 16 117/71 97 Intake and Output 01/12/18 01/12/18 01/12/18 07:59 15:59 23:59 Intake Total 1770 / 1770 340 / 340 250 / 250 Balance 1770 / 1770 340 / 340 250 / 250 Intake: IV Fluids 450 / 450 100 / 100 250 / 250 Zosyn 3.375 GM In 0.9 % Sodium 200 / 200 100 / 100 Chloride (Mini-Bag +) 100 ML @ 25 mls/hr IVPB Q8HR [facility] Rx#: [id number] Vancocin 1,000 MG In 0.9 % 250 / 250 250 / 250 Sodium Chloride 250 ML @ 166. 667 mls/hr IVPB Q12H [facility] Rx#: [id number] Oral 1320 / 1320 240 / 240 Other: Meal Dinner Breakfast Percent of Meal Consumed 100% 100% # Voids 1 Weight 60.101 kg Patient Weight 01/12/18 23:59 Weight 60.101 kg - Labs CBC & BMP: 01/11/18 04:59 01/12/18 03:56 Labs: Abnormal lab results RBC 3.76 M/mcL (3.82-4.97) L 01/11/18 04:59 Hgb 10.7 g/dL (11.5-15.4) L 01/11/18 04:59 Hct 33.4 % (35.3-44.9) L 01/11/18 04:59 Nucleated RBCs/100 WBC 0.3 /100 WBC (0) H 01/10/18 13:48 ESR 44 mm/hr (0-15) H 01/10/18 16:38 PT 14.9 Seconds (9.4-12.1) H 01/11/18 04:59 Sodium 134 mEq/L (136-145) L 01/11/18 04:59 Chloride 108 mEq/L (98-107) H 01/11/18 04:59 Carbon Dioxide 22 mEq/L (23-29) L 01/11/18 04:59 Calculated Osmolality 278 (280-300) L 01/11/18 04:59 Calcium 8.3 mg/dL (8.6-10.3) L 01/11/18 04:59 C-Reactive Protein 31 mg/L (Less than 10) H 01/10/18 13:48 Vancomycin Trough 18 mcg/mL (5-10) H 01/12/18 03:56 Consult Discharge Plan - Plan Referrals: Sammy Herring MD [Primary Care Provider] -
[2018-01-12] MEDS: Acetaminophen 325 MG TABLET PO PRN (21:09)
[2018-01-13] MEDS: Ibuprofen 400 MG TABLET PO PRN ×2 (03:30→20:30)
[2018-01-13 05:23] LABS: Basophils % 0.6 %; Eosinophils # 0.2 K/mcL (0.0-0.6); Eosinophils % 3.9 %; Hematocrit 35.1 % (35.3-44.9); Hemoglobin 11.3 g/dL (11.5-15.4); Immature Granulocytes % 0.8 % (0-4); Lymphocytes % 32.3 %; Mean Corpuscular HGB Conc 32.2 g/dL (31.6-35.5); Mean Corpuscular Hemoglobin 29.2 pg (28.0-33.3); Mean Corpuscular Volume 90.7 fL (83.0-100.0); Mean Platelet Volume 10.5 fL (9.4-12.4); Monocytes # 0.6 K/mcL (0.0-1.3); Neutrophils # 3.3 K/mcL (1.6-8.9); Platelet Count 226 K/mcL (140-400); Red Blood Count 3.87 M/mcL (3.82-4.97); Red Cell Distribution Width 12.4 % (11.5-14.5); Segmented Neutrophils % 53.4 %
[2018-01-13 05:42] LABS: BUN/Creatinine Ratio 24 (6-26); Blood Urea Nitrogen 19 mg/dL (6-20); Calcium 8.6 mg/dL (8.6-10.3); Carbon Dioxide 22 mEq/L (23-29); Chloride 106 mEq/L (98-107); Glucose 83 mg/dL (70-105); Osmolality,Calculated 283 (280-300); Potassium 4.1 mEq/L (3.5-5.1); Sodium 136 mEq/L (136-145); eGFR For African Americans > 60 (> 60); eGFR For Non-African Americans > 60 (> 60)
[2018-01-13] MEDS: Piperacillin/Tazobactam 3.375 GM in 0.9 % Sodium Chloride Mini Bag 100 ML IVPB SCH (08:28)
[2018-01-13] MEDS: Nicotine 21 MG PATCH.TD24 TD SCH (08:49)
[2018-01-13] MEDS: Gabapentin 400 MG CAPSULE PO SCH ×3 (08:50→20:30)
--- NOTE | 2018-01-13 09:18 | Event Note ---
<Boubacar Rodas - Last Filed: 01/13/18 10:08> Date of Encounter: 01/13/18 Time of Encounter: 09:00 Dr. Montana was called in consult concerning this patient for possible I&D of abscess in b/l upper extremities. Due to the involvement of these abscesses in the muscle and their proximity to the elbow joint felt this issue would be better addressed by orthopedic surgery. Orthopedic surgery agreed to evaluate the patient instead of general surgery. <Bjorn Montana - Last Filed: 01/14/18 18:04> Date of Encounter: 01/14/18 I agree with the above statement
[2018-01-13] MEDS: Acetaminophen 325 MG TABLET PO PRN (11:28)
--- NOTE | 2018-01-13 22:22 | Orthopedic Operative Note ---
Date of procedure: 01/13/18 Pre-op diagnosis: Abscess right arm Post-op diagnosis: same Procedure: Incision and drainage abscess right arm Implants: None Complications: None Anesthesia: local Surgeon: David Ang Was there an education assistant present: No Estimated blood loss (cc): 5 Condition: stable Disposition: no change
--- NOTE | 2018-01-13 22:26 | Operative Note ---
Date of procedure: 01/13/18 Pre-op diagnosis: Abscess right arm Post-op diagnosis: same Procedure: Incision and drainage abscess right arm Implants: None Anesthesia: local Surgeon: David Ang Was there an veterinary technician assistant present: No Estimated blood loss (cc): 5 Specimen: None Condition: stable Disposition: no change Procedure in Detail: Gross findings: Preprocedure diagnosis revealed a fluctuant area in the right anterior arm anterior to the biceps. This was purely subcutaneous. Sitting and drainage was performed with a cruciate incision with the expression of a fair amount of thick purulent material. Wound was packed with gauze and sterile dressing applied. Procedure: The right arm was prepped with alcohol followed by instillation of approximately 8 mL of 1% lidocaine solution. Site was now prepped with Betadine. Utilizing a #15 scalpel blade a small cruciate incision was created into the subcutaneous tissue with the release of probably 5-10 mL of thick purulent material. The wound was opened with blunt dissection. Further expression revealed no persistent purulent drainage but simply some blood. Wound was debrided with gauze followed by packing with a small strip of gauze. Dressings consisting of 4 x 4's Kerlix were now applied and secured. No specimens are sent for pathology. The patient is being actively treated for an MRSA infection/abscess in the left antecubital fossa.
--- NOTE | 2018-01-13 23:01 | Internal Med Progress Note ---
Date of Encounter: 01/13/18 Time of Encounter: 09:20 - Assessment and plan (1) Abscess Current Visit: Yes Status: Acute Assessment and plan: Left antecubital fossa abscess drained. Culture grew out staph areus. Discontinue zosyn. Continue IV vancomycin. Right deltoid phlegmon with no drainage. Orthopedics consulted; appreciate input. Will determine if I&D needed. (2) Substance abuse Current Visit: Yes Status: Chronic (3) ADHD Current Visit: Yes Status: Chronic Assessment and plan: Hold home stimulant at this time. (4) Bipolar 1 disorder Current Visit: Yes Status: Chronic (5) Depression Current Visit: Yes Status: Chronic Qualifiers: Depression Type: other depression Qualified Code(s): F32.89 - Other specified depressive episodes (6) DVT prophylaxis Current Visit: Yes Status: Acute Assessment and plan: Continue SCDs. - Time Spent With Patient Total time spent is greater than 50% in coordination of care (as documented) at patient's floor/unit and/or counseling patient: less than 15 minutes - Subjective Interval history: Patient had no acute events overnight. She is concerned that a new abscess on her right arm is "going to burst." Still has some pain in left arm. She denies fever, chills, chest pain, SOB, nausea, or vomiting. She has no other complaints. - Constitutional Vitals: Temp Pulse Resp BP Pulse Ox 98.1 F 77 14 153/96 100 01/13/18 19:57 01/13/18 19:57 01/13/18 19:57 01/13/18 19:57 01/13/18 20:48 General appearance: Present: cooperative, A&O X 3, no acute distress, answers questions appropriately - Respiratory Respiratory exam: Present: CTAB. Absent: accessory muscle use, rales, rhonchi, wheezes Additional comments: Normal WOB - Cardiovascular Cardiovascular exam: Present: RRR, +S1, +S2. Absent: diastolic murmur, gallop, rubs, systolic murmur Additional comments: No BLE edema - GI/Abdominal GI/Abdominal exam: Present: normal bowel sounds, soft. Absent: distended, hepatomegaly, mass, splenomegaly, tenderness - Psychiatric Psychiatric exam: Present: normal affect, normal mood. Absent: agitated, anxious, depressed - Skin Additional comments: Left antecubital fossa in bandaging; no drainage; mild TTP. Right ventral upper arm with approximately 2 cm diameter erythematous and edematous lesion with fluctuance and surrounding induration; moderate TTP. Internal Medicine: Result - Labs CBC & Chem 7: 01/13/18 05:12 01/13/18 05:12 Labs: Short CBC 01/13/18 Range/Units 05:12 WBC 6.2 (4.3-11.1) K/mcL Hgb 11.3 L (11.5-15.4) g/dL Hct 35.1 L (35.3-44.9) % Plt Count 226 (140-400) K/mcL Neutrophils # 3.3 (1.6-8.9) K/mcL BMP 01/13/18 05:12 Sodium 136 Potassium 4.1 Chloride 106 Carbon Dioxide 22 L BUN 19 Creatinine 0.79 Glucose 83 Calcium 8.6 - ABG Interpretation ABG results: PT/INR, D-dimer PT 14.9 Seconds (9.4-12.1) H 01/11/18 04:59 - VTE Reasons for not Prescribing Prophylaxis: Treatment not Indicated - Low risk for VTE Documentation of Mechanical Device: Intermittent pneumatic compression device Consult Discharge Plan - Plan Referrals: Sammy Herring MD [Primary Care Provider] -
[2018-01-14 08:46] LABS: Basophils % 0.4 %; Eosinophils # 0.2 K/mcL (0.0-0.6); Hematocrit 37.5 % (35.3-44.9); Hemoglobin 12.4 g/dL (11.5-15.4); Immature Granulocytes % 0.8 % (0-4); Lymphocytes # 1.5 K/mcL (0.6-4.6); Lymphocytes % 21.7 %; Mean Corpuscular HGB Conc 33.1 g/dL (31.6-35.5); Mean Corpuscular Hemoglobin 29.5 pg (28.0-33.3); Mean Corpuscular Volume 89.1 fL (83.0-100.0); Mean Platelet Volume 10.4 fL (9.4-12.4); Monocytes # 0.5 K/mcL (0.0-1.3); Monocytes % 7.6 %; Neutrophils # 4.7 K/mcL (1.6-8.9); Platelet Count 242 K/mcL (140-400); Red Blood Count 4.21 M/mcL (3.82-4.97); Red Cell Distribution Width 12.3 % (11.5-14.5); Segmented Neutrophils % 66.5 %
[2018-01-14 09:05] LABS: BUN/Creatinine Ratio 24 (6-26); Blood Urea Nitrogen 16 mg/dL (6-20); Calcium 8.8 mg/dL (8.6-10.3); Carbon Dioxide 24 mEq/L (23-29); Chloride 105 mEq/L (98-107); Glucose 99 mg/dL (70-105); Osmolality,Calculated 279 (280-300); Potassium 4.1 mEq/L (3.5-5.1); Sodium 134 mEq/L (136-145); eGFR For African Americans > 60 (> 60); eGFR For Non-African Americans > 60 (> 60)
[2018-01-14] MEDS: Nicotine 21 MG PATCH.TD24 TD SCH (09:26)
[2018-01-14] MEDS: Gabapentin 400 MG CAPSULE PO SCH ×3 (09:26→22:46)
[2018-01-14] MEDS: Ibuprofen 400 MG TABLET PO PRN (16:21)
--- NOTE | 2018-01-14 22:31 | Internal Med Progress Note ---
Date of Encounter: 01/14/18 Time of Encounter: 08:37 - Assessment and plan (1) Abscess Current Visit: Yes Status: Acute Assessment and plan: Left antecubital fossa abscess and right upper arm abscess both drained. Left antecubital fossa wound culture grew out staph areus. Right arm abscess wound culture pending. Continue IV vancomycin. Orthopedics consulted; appreciate input. (2) Substance abuse Current Visit: Yes Status: Chronic (3) ADHD Current Visit: Yes Status: Chronic Assessment and plan: Hold home stimulant at this time. (4) Bipolar 1 disorder Current Visit: Yes Status: Chronic (5) Depression Current Visit: Yes Status: Chronic Assessment and plan: Hold off any further treatment at this time. This can be followed up outpatient should she be willing. (6) DVT prophylaxis Current Visit: Yes Status: Acute Assessment and plan: Continue SCDs. - Time Spent With Patient Total time spent is greater than 50% in coordination of care (as documented) at patient's floor/unit and/or counseling patient: less than 15 minutes - Subjective Interval history: Patient had no acute events overnight. She is doing better this AM, but still sleepy. She denies fever, chills, chest pain, SOB, nausea, or vomiting. She has no other complaints. - Constitutional Vitals: Temp Pulse Resp BP Pulse Ox 98.2 F 82 14 147/84 100 01/14/18 18:56 01/14/18 18:56 01/14/18 18:56 01/14/18 18:56 01/14/18 18:56 General appearance: Present: cooperative, A&O X 3, no acute distress, answers questions appropriately - Respiratory Respiratory exam: Present: CTAB. Absent: rales, rhonchi, wheezes Additional comments: Normal WOB - Cardiovascular Cardiovascular exam: Present: RRR, +S1, +S2. Absent: diastolic murmur, gallop, rubs, systolic murmur Additional comments: No BLE edema - GI/Abdominal GI/Abdominal exam: Present: normal bowel sounds, soft. Absent: distended, hepatomegaly, mass, splenomegaly, tenderness - Psychiatric Psychiatric exam: Present: normal affect, normal mood. Absent: agitated, anxious, depressed - Skin Additional comments: Left antecubital fossa in bandaging; no drainage; mild TTP. Right ventral upper arm in bandaging; no drainage; moderate TTP. Will try to examine wounds later today with wound care evaluation. Internal Medicine: Result - Labs CBC & Chem 7: 01/14/18 08:35 01/14/18 08:35 Labs: Short CBC 01/14/18 Range/Units 08:35 WBC 7.1 (4.3-11.1) K/mcL Hgb 12.4 (11.5-15.4) g/dL Hct 37.5 (35.3-44.9) % Plt Count 242 (140-400) K/mcL Neutrophils # 4.7 (1.6-8.9) K/mcL BMP 01/14/18 08:35 Sodium 134 L Potassium 4.1 Chloride 105 Carbon Dioxide 24 BUN 16 Creatinine 0.68 Glucose 99 Calcium 8.8 - ABG Interpretation ABG results: PT/INR, D-dimer PT 14.9 Seconds (9.4-12.1) H 01/11/18 04:59 - VTE Reasons for not Prescribing Prophylaxis: Treatment not Indicated - Low risk for VTE Documentation of Mechanical Device: Intermittent pneumatic compression device Consult Discharge Plan - Plan Referrals: Sammy eHrring MD [Primary Care Provider] -
[2018-01-15] MEDS: Ibuprofen 400 MG TABLET PO PRN ×2 (02:25→15:19)
[2018-01-15 04:43] LABS: Basophils % 0.6 %; Eosinophils # 0.2 K/mcL (0.0-0.6); Eosinophils % 3.5 %; Hematocrit 37.3 % (35.3-44.9); Hemoglobin 12.2 g/dL (11.5-15.4); Lymphocytes # 1.9 K/mcL (0.6-4.6); Lymphocytes % 29.7 %; Mean Corpuscular HGB Conc 32.7 g/dL (31.6-35.5); Mean Corpuscular Hemoglobin 29.3 pg (28.0-33.3); Mean Corpuscular Volume 89.4 fL (83.0-100.0); Mean Platelet Volume 10.7 fL (9.4-12.4); Monocytes # 0.6 K/mcL (0.0-1.3); Monocytes % 10.2 %; Neutrophils # 3.5 K/mcL (1.6-8.9); Platelet Count 244 K/mcL (140-400); Red Blood Count 4.17 M/mcL (3.82-4.97); Red Cell Distribution Width 12.2 % (11.5-14.5)
[2018-01-15] MEDS: Gabapentin 400 MG CAPSULE PO SCH ×2 (10:04→15:18)
[2018-01-15] MEDS: Nicotine 21 MG PATCH.TD24 TD SCH (10:05)
[2018-01-15 11:30] VITALS: BP 151/95
--- NOTE | 2018-01-15 11:41 | Discharge Summary ---
- NOTES TO OUTPATIENT PROVIDER Notes to Outpatient Provider: Follow up with PCP in 2-3 days after discharge. Recheck BMP and CBC at that time. Reevaluate wound at that time, and consider wound care clinic referral if needed. Date of Encounter: 01/15/18 Time of Encounter: 09:17 - Discharge Diagnosis (1) Abscess Priority: Primary Status: Acute (2) Substance abuse Priority: Secondary Status: Chronic (3) ADHD Priority: Secondary Status: Chronic (4) Bipolar 1 disorder Priority: Secondary Status: Chronic (5) Depression Priority: Secondary Status: Chronic (6) DVT prophylaxis Priority: Secondary Status: Acute Hospital course: Ms. Cole is a 42 year old white female with PMH of IVDU who was admitted for abscess/cellulitis of BUE. She was admitted to general medical floor. She was started on IV vancomycin and IV zosyn. Orthopedics was consulted. LUE abscess was already draining upon admission. RUE abscess was I&D by orthopedics. Wound care made recommendations. Wounds were dressed and changed daily. Wound culture grew out MRSA susceptible to vancomycin, clindamycin, and bactrim. IV zosyn was discontinued. She will be discharged with 8 more days of clindamycin 300 mg Q8H and bactrim DS 1 tablet Q12H. Patient has been taught how to do wound care at home. She will be provided with wound care supplies prior to discharge. She is feeling "good" today. She states that pain is now controlled. She will use tylenol PRN for pain/fever at home. She will follow up with PCP in 2-3 days after discharge. Repeat BMP and CBC can be obtained at that time. Wounds should also be checked and determined if she needs referral to wound care clinic. Patient has met maximum benefit of this hospitalization and will be discharged home in stable condition. Discharge discussed with: patient, nurse, social work, case management, other ( Pharmacist) - Time Spent with Patient Total time spent providing and/or coordinating discharge services: Greater than 30 minutes - Discharge Medications Prescriptions: Acetaminophen [Tylenol] 650 mg PO Q6HR PRN 7 Days #60 tablet PRN Reason: Mild Pain/Fever Clindamycin HCl 300 mg PO Q8H 9 Days #26 capsule Nicotine Patch [Nicoderm] 21 mg TD DAILY 7 Days #7 patch.[email or web address] Sulfamethoxazole/Trimeth DS [Bactrim DS] 1 each PO Q12H 9 Days #17 tablet Home Medications: Dextroamphetamine/Amphetamine [Adderall 10 mg Tablet] 10 mg PO QID 05/15/16 [ History] Gabapentin [Neurontin] 800 mg PO TID 01/10/18 [History] SUMAtriptan Succinate [Sumavel Dosepro] 4 mg SQ DAILY PRN 01/10/18 [History] Acetaminophen [Tylenol] 650 mg PO Q6HR PRN 7 Days #60 tablet 01/15/18 [Rx] Clindamycin HCl 300 mg PO Q8H 9 Days #26 capsule 01/15/18 [Rx] Nicotine Patch [Nicoderm] 21 mg TD DAILY 7 Days #7 patch.[email or web address] 01/15/18 [Rx] Sulfamethoxazole/Trimeth DS [Bactrim DS] 1 each PO Q12H 9 Days #17 tablet [Rx] Allergies/Adverse Reactions: 3 Allergy/AdvReac Type Severity Reaction Status Date / Time Opioids-Meperidine and AdvReac Itching Verified 11/08/17 03:15 Related Date of admission: 01/10/18 18:23 Primary care physician: Sammy Herring MD Consults: 01/10/18 20:30 Consult to Physician [CONS] Routine Consulting Provider: David Ang Reason for Consult: eval for nec fasc Call Completed: Yes 01/10/18 20:32 [address] to Road Sign Installer [CONS] Routine Reason for SW Consult: substance abuse 01/11/18 08:43 Consult to Surgery [CONS] Routine Consulting Provider: [facility] Reason for Consult: Abscess drainage Call Completed: No 01/11/18 08:50 Consult to Orthopedic Surgery [CONS] Routine Consulting Provider: [facility] Reason for Consult: Abscess left antecubital fossa and right deltoid Call Completed: Yes 01/14/18 07:57 Consult to Wound Care [CONS] Stat Reason for Consult: bilateral wounds on arms, Dr. Batista ask this nurse to put order in Call Completed: No 01/15/18 08:49 [address] to [address] Sign Installer [CONS] Routine Reason for SW Consult: Financial assistance with Home wound care supplies Discharging clinician: Narinder Batista Anticipated date of discharge: 01/15/18 - Constitutional Vitals: Temp Pulse Resp BP Pulse Ox 98.0 F 75 16 151/95 98 01/15/18 11:29 01/15/18 11:29 01/15/18 11:29 01/15/18 11:29 01/15/18 11:29 General appearance: Present: cooperative, A&O X 3, no acute distress, answers questions appropriately - Respiratory Respiratory exam: Present: CTAB. Absent: accessory muscle use, rales, rhonchi, wheezes Additional comments: Normal WOB - Cardiovascular Cardiovascular exam: Present: RRR, +S1, +S2. Absent: diastolic murmur, gallop, rubs, systolic murmur Additional comments: No BLE edema - GI/Abdominal GI/Abdominal exam: Present: normal bowel sounds, soft. Absent: distended, hepatomegaly, mass, splenomegaly, tenderness - Psychiatric Psychiatric exam: Present: normal affect, normal mood. Absent: agitated, anxious, depressed - Skin Additional comments: 2 cm diameter open wound in left antecubital fossa with mild erythema, no pus, mild serosanguinous drainage, minimal surrounding induraiton, and mild TTP. 2 cm diameter open wound in right upper arm with mild erythema, no pus, moderate serosanguinous drainage, mild surrounding erythema, and moderate TTP. - Patient Status Disposition: Home, Self-Care Condition: Good Functional capacity at discharge: independent ambulation Overall status at discharge: patient is progressing back to baseline - Discharge Instructions Follow Up With: Sammy Herring MD [Primary Care Provider] - Additional Instructions: Follow up with PCP in 2-3 days after discharge. Recheck BMP and CBC at that time. Reevaluate wound at that time, and consider wound care clinic referral if needed.Follow up with PCP in 2-3 days after discharge. Recheck BMP and CBC at that time. Reevaluate wound at that time, and consider wound care clinic referral if needed. Continue daily wound care/dressing changes at home as directed. - Diet and Activity Activity: resume usual activities as tolerated Diet: regular diet - VTE Reasons for not Prescribing Prophylaxis: Treatment not Indicated - Low risk for VTE Documentation of Mechanical Device: Intermittent pneumatic compression device
[2018-01-15] MEDS ORDERED: Aminoglycoside Consult 1 EACH MC ONE (16:13)
== END 2018-01-15 16:14 | disposition home or self-care (01) | DRG 581 ==
LOC: EMEROO 12:56 → 3ANU 18:23
PROVIDERS: ADMIT Family Medicine; ATTEND Family Medicine